=== PATIENT | male | born 1995 | race American Indian/Alaskan Native ===

== ENCOUNTER 2016-05-10 18:22 | Emergency (ER) | payer SELFPAY ==
[2016-05-10 18:50] VITALS: BP 133/75
--- NOTE | 2016-05-10 23:41 | Emergency Department Report ---
ED Male HPI - General Chief complaint: Urogenital-Male Stated complaint: URINATION PAIN Time Seen by Provider: 05/10/16 22:37 Source: patient Mode of arrival: Ambulatory Limitations: No Limitations - History of Present Illness Initial comments: 20-year-old male presents with complaint of penile discharge for 3 days, copious , yellowish, foul-smelling from urethra. Denies any scrotal or penile lesions or any other lesions in the groin region. States he may have had contact with someone who recently tested positive for chlamydia. Denies any fever or chills no testicular swelling or pain no rectal pain. Patient states he has had 2+ sexual partners and unprotected in the last 3 months. Complaining of some mild dysuria when he urinates. MD Complaint: penile discharge, dysuria Onset/Timin -: days(s) Location: penis Severity: moderate Quality: burning Consistency: constant Worsens with: urination new sexual partner discharge - Related Data Allergies Allergy/AdvReac Type Severity Reaction Status Date / Time No Known Allergies Allergy Unverified 05/10/16 18:46 ED Review of Systems ROS: Stated complaint: URINATION PAIN Other details as noted in HPI Constitutional: denies: chills, fever Eyes: denies: eye pain, eye discharge, vision change ENT: denies: ear pain, throat pain Respiratory: denies: cough, shortness of breath, wheezing Cardiovascular: denies: chest pain, palpitations Endocrine: no symptoms reported Gastrointestinal: denies: abdominal pain, nausea, diarrhea Genitourinary: dysuria, discharge Musculoskeletal: denies: back pain, joint swelling, arthralgia Skin: denies: rash, lesions Neurological: denies: headache, weakness, paresthesias Psychiatric: denies: anxiety, depression Hematological/Lymphatic: denies: easy bleeding, easy bruising ED Past Medical Hx - Past Medical History Previous Medical History?: No - Surgical History Past Surgical History?: No - Social History Smoking Status: Current Every Day Smoker Substance Use Type: None ED Physical Exam - General Limitations: No Limitations General appearance: alert, in no apparent distress - Head Head exam: Present: atraumatic, normocephalic - Eye Eye exam: Present: normal appearance - ENT ENT exam: Present: mucous membranes moist - Neck Neck exam: Present: normal inspection - Respiratory Respiratory exam: Present: normal lung sounds bilaterally. Absent: respiratory distress - Cardiovascular Cardiovascular Exam: Present: regular rate, normal rhythm. Absent: systolic murmur, diastolic murmur, rubs, gallop - GI/Abdominal GI/Abdominal exam: Present: soft, normal bowel sounds - Rectal Rectal exam: Present: deferred - exam: Present: normal inspection, urethral discharge (yellowish whitish discharge from urethra) - Extremities Exam Extremities exam: Present: normal inspection - Back Exam Back exam: Present: normal inspection - Neurological Exam Neurological exam: Present: alert, oriented X3 - Psychiatric Psychiatric exam: Present: normal affect, normal mood - Skin Skin exam: Present: warm, dry, intact, normal color. Absent: rash ED Course Vital Signs 05/10/16 18:47 Temperature 99.5 F Pulse Rate 105 H Respiratory 16 Rate Blood Pressure 133/75 O2 Sat by Pulse 99 Oximetry ED Medical Decision Making - Medical Decision Making A/P: Urethritis 1-likely from gonococcal or chlamydial source based on patient's report of possible positive STD contact 2-empiric treatment with azithromycin and ceftriaxone as per CDC guidelines 3-urine GC tests sent 4-patient referred to primary care doctor Critical care attestation.: If time is entered above; I have spent that time in minutes in the direct care of this critically ill patient, excluding procedure time. ED Disposition Clinical Impression: Urethritis Disposition: DISCHARGED TO HOME OR SELFCARE Is pt being admited?: No Does the pt Need Aspirin: No Condition: Stable Instructions: Nonspecific Urethritis in Men (ED), Chlamydia Infection (ED) [facility]errals: [facility] [Outside] - 3-5 Days [facility] [Outside] - 3-5 Days Forms: STI Treatment and Prevention Time of Disposition: 23:47
[2016-05-10] MEDS ORDERED: ROCEPHIN IM ONE (23:43)
[2016-05-10] MEDS ORDERED: ZITHROMAX PO ONE (23:43)
[2016-05-10] MEDS ORDERED: NACL P/F VIAL (10 ML) 10 ML ONE (23:45)
== END 2016-05-10 23:55 | disposition home or self-care (01) ==
LOC: ED 18:22
DX: N34.2 Other urethritis (principal); F17.200 Nicotine dependence, unspecified, uncomplicated
CPT/HCPCS: 87591; 96372; 99283; J0696